=== PATIENT | female | born 1955 | race African-American/Black ===

== ENCOUNTER → 2016-06-05 | Day surgery (SDC) | payer OTHER ==
--- NOTE | 2016-06-07 09:28 | PATH ---
Surgical Pathology Report Patient Name: NATO DEWITT [facility]. Rec. #: [id number] /Age/Gender: 1955 (Age: 60) / F Account: [id number] Location: [facility] RADIOLOGY U Taken: 06/05/2016 Received: 06/05/2016 Reported: 06/07/2016 Physicians: Boby Ovalles M.D. 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 Comment: Immunohistochemical stains performed and interpreted at [facility] for smooth muscle myosin heavy chain and p63 show preservation of the myoepithelial cell layer. Recommend correlation with clinical and radiologic findings and followup as clinically indicated. Electronically Signed Orlin Schofield M.D. Gross Description Received in formalin, labeled "left breast retro," is a 1.7 x 1.5 x 0.3 cm aggregate of multiple quinones-yellow, irregular to cylindrical portions of fibroadipose tissue. The formalin is filtered and the specimen is entirely submitted in one cassette. Time to formalin fixation: 2 minutes Total formalin fixation time: Approximately 7 hours. 06/05/201606/05/2016
== END | disposition home or self-care (01) ==
LOC: FRADUS-SUR 10:08
PROVIDERS: ATTEND Surgery Surgical Oncology
PROC: 0HBU3ZX Excision of Left Breast, Percutaneous Approach, Diagnostic (ICD-10-PCS; principal; 2016-06-05)
DX: N63 Unspecified lump in breast (principal); D24.2 Benign neoplasm of left breast; N60.82 Other benign mammary dysplasias of left breast; N64.89 Other specified disorders of breast
CPT/HCPCS: 19083; 87899; 88305-TC; 88341-TC; 88342-TC; A4648; G0206-TC